=== PATIENT | male | born 1995 | race Caucasian/White ===

== ENCOUNTER 2016-07-09 00:54 | Emergency (ER) | payer SELFPAY ==
--- NOTE | ~2016-07-09 | ER ---
PATIENT'S NAME: CARLA THOMPSON [facility] AGE: 21 Y [address] ROOM: [place] [id number] LOCATION: [facility] ADMIT DATE: 07/09/2016 ER/Outpatient Report DISCHARGE DATE: 07/09/2016 FAMILY PHYSICIAN: Physician, Unknown ATTENDING PHYSICIAN: Samir Peres CHIEF COMPLAINT: "I think I have been poisoned." "My body feels numb." HISTORY OF PRESENT ILLNESS: The patient is a 21-year-old male, who was brought to the emergency room by paramedics via ambulance. The patient is very combative and belligerent. Says that he was poisoned and his body feels numb. He feels short of breath with chest pain. He thinks he got poisoned with rat poison. He felt like he is going to . Very agitated. Short tempered. Denies hallucinating auditory or visual. He was recently in [facility] inpatient therapy for psychosis. No headache, eyes, ears, nose, throat, neck, or spine pain. No fall or trauma. No recent coughs, colds, flus, fever, chills, or sweats. No dizziness or syncope. No abdominal pain. No urinary symptoms or diarrhea. No joint muscle swelling, redness, or pain. No skin eruptions or rash. Does have a long psychiatric history. No neuro changes. No endocrine problems. HOME MEDICATIONS: See attached medication list. ALLERGIES: PEPTO-BISMOL. SOCIAL HISTORY: The patient does smoke and drink alcohol. Does use marijuana. SIGNIFICANT PAST MEDICAL HISTORY: Extensive psych history, tobacco abuse, alcohol abuse, marijuana abuse. OPERATIONS: Left eye surgery. REVIEW OF SYSTEMS: All systems reviewed by me are negative with the exception of those discussed in the history of present illness. PHYSICAL EXAMINATION: VITAL SIGNS: Pulse 110, regular; respirations 20; blood pressure 166/84, and O2 saturation on room air is 97%. PATIENT'S NAME: CARLA THOMPSON [facility] AGE: 21 Y [address] ROOM: [place] [address] LOCATION: [facility] ADMIT DATE: 07/09/2016 ER/Outpatient Report DISCHARGE DATE: 07/09/2016 FAMILY PHYSICIAN: Physician, Unknown ATTENDING PHYSICIAN: Samir Peres HEAD: Normocephalic. No abrasion, contusion, laceration, swelling of the scalp or face. EYES: Extraocular muscles intact. PERRL. EARS: Clear TMs bilaterally. NOSE AND THROAT: Clear. Mucous membranes moist. Teeth, jaw intact. NECK: No nuchal rigidity. No findings of adenopathy. SPINE: Negative. LUNGS: Clear. Good air flow. No rales, rhonchi, or wheezes. HEART: Regular. Pulses are palpable. The patient is mildly tachypneic and tachycardic. ABDOMEN: Soft, nondistended, nontender. Good bowel tones. No organomegaly or abnormal mass palpable. EXTREMITIES: Without peripheral edema, cyanosis, or deformity. NEURO: Cranial nerves intact. No lateralizing signs. The patient is awake, a little agitated and uncooperative at times. SKIN: Clear. VASCULAR: Intact. LABORATORY DATA: Urinalysis showed 0 to 2 whites, negative reds, 0-2 epithelial cells, negative bacteria per high-powered field, specific gravity is 1.015. Urine drug screen was negative except for marijuana. CMS was normal except for low potassium 3.6, elevated glucose 106, low calcium of 8.4. Medical blood alcohol is less than 0.01. Salicylate level and serum level was normal at 5.0. TSH was 5.26. [place] count [place] [address], and 51 segs, 30 lymphs, 14 monos, 3 eos, 1 baso. Hemoglobin is 15.2 with hematocrit of 42.7, platelet count 319,000. EMERGENCY DEPARTMENT COURSE: I did give the patient 1 L normal saline IV in the emergency room. IMPRESSION: 1. Agitation thinking he was poisoned with past history of psychosis, bipolar disorder, schizoaffective disorder. 2. History of tobacco abuse. 3. History of alcohol abuse. 4. History of use of marijuana. 5. Past history of auditory and visual hallucinations. PLAN: The patient was given 1 L of normal saline IV in the emergency room. The patient did feel better, was discharged from the emergency department. Continue his present home medications and care. Follow up with personal physician or his therapist or psychiatrist as scheduled. Discussed with the patient concerning my findings and recommendations. PATIENT'S NAME: CARLA THOMPSON [facility] AGE: 21 Y [address] ROOM: [place], [place] [address] LOCATION: [facility] ADMIT DATE: 07/09/2016 ER/Outpatient Report DISCHARGE DATE: 07/09/2016 FAMILY PHYSICIAN: Magaly Cardenas ATTENDING PHYSICIAN: Samir Peres MD [place] MER[place]/modl /[id number] d: 07/09/16625 t: 07/11/16 1814, OUTPATIENT REPORT
[~2016-07-09 00:54] MED LIST: DEPAKOTE DELAY500 MG PO; MELATIN3 MG PO; NICODERM / HABIT7 MG TOP; NICORETTE2 MG PO; VISTARIL50 MG PO; ZYPREXA10 MG PO
[2016-07-09 01:38] LABS: BASOPHIL # 0.1 K/uL (0.0-0.2); BASOPHIL % 0.7 %; EOSINOPHIL # 0.4 K/uL (0.0-0.5); EOSINOPHIL % 3.4 %; HEMATOCRIT 42.7 % (37.0-53.0); HEMOGLOBIN 15.2 g/dL (12.0-17.0); IMMATURE GRANULOCYTE % 0.3 %; LYMPHOCYTE # 3.4 K/uL (0.8-4.0); LYMPHOCYTE % 30.2 %; MCH 31.5 pg (27.0-34.0); MCHC 35.6 gm/dL (32.0-36.5); MCV 88.6 fl (83.0-98.0); MONOCYTE # 1.6 K/uL (0.0-1.0); MONOCYTE % 14.1 %; MPV 9.1 fl (9.4-12.4); NEUTROPHIL # (ANC) 5.8 K/uL (1.4-9.0); NEUTROPHIL % 51.3 %; NRBC % 0 /100WBC (0-0.00); RBC 4.82 M/uL (4.00-6.00); RDW-CV 13.3 % (11.9-14.6); WBC 11.4 K/uL (4.0-11.0)
[2016-07-09 01:39] LABS: PLATELET COUNT 319 K/uL (150-450)
[2016-07-09 01:54] LABS: ALBUMIN 3.9 gm/dL (3.5-5.0); ALK PHOS 65 IU/L (33-138); ALT 45 IU/L (12-78); BLOOD UREA NITROGEN 17 mg/dL (6-24); CALCIUM 8.4 mg/dL (8.5-10.5); CHLORIDE 108 mMol/L (96-110); CO2 24 mMol/L (22-32); CREATININE 1.2 mg/dL (0.6-1.3); ESTIMATED GFR (MDRD EQUATION) > 60; SODIUM 143 mMol/L (135-145); TOTAL PROTEIN 7.5 g/dL (6.0-8.4)
[2016-07-09 01:57] LABS: ANION GAP 14.6 (10.0-19.0); AST 23 IU/L (10-40); POTASSIUM 3.6 mMol/L (3.7-5.1); TOTAL BILIRUBIN 0.2 mg/dL (0.0-1.5)
[2016-07-09 02:12] LABS: BILIRUBIN URINE NEGATIVE (NEGATIVE); BLOOD URINE NEGATIVE /UL (NEGATIVE); COLOR URINE YELLOW (YELLOW); GLUCOSE URINE NEGATIVE (NEGATIVE); KETONE URINE 5 mg/dL (NEGATIVE); LEUKOCYTES URINE 25 /UL (NEGATIVE); NITRITE URINE NEGATIVE (NEGATIVE); PROTEIN URINE NEGATIVE (NEGATIVE); SPEC GRAVITY URINE 1.015 (1.003-1.035); TURBIDITY URINE CLEAR (CLEAR); UROBILINOGEN URINE 1 mg/dL (NORMAL)
[2016-07-09 02:52] LABS: BARBITURATE NEGATIVE (NEGATIVE); COCAINE NEGATIVE (NEGATIVE); OPIATES NEGATIVE (NEGATIVE); WBC URINE 0-2 #/HPF (NEGATIVE)
[2016-07-09 02:53] LABS: BACTERIA URINE NEGATIVE (NEGATIVE); EPITHELIAL URINE 0-2 #/HPF (NEGATIVE); RBC URINE NEGATIVE #/HPF (NEGATIVE)
[2016-07-09 02:55] LABS: AMPHETAMINE NEGATIVE (NEGATIVE)
== END 2016-07-09 03:11 | disposition disaster alternative care site (69) ==
LOC: GMED 00:54
PROVIDERS: Emergency Medicine
DX: R45.1 Restlessness and agitation (principal); F17.200 Nicotine dependence, unspecified, uncomplicated; F31.9 Bipolar disorder, unspecified; F25.9 Schizoaffective disorder, unspecified
CPT/HCPCS: G0480; J7030